=== PATIENT | female | born 1980 | race Caucasian/White ===

== ENCOUNTER 2016-10-14 13:19 | Emergency (ER) | payer MEDICAID ==
[2016-10-14] MEDS ORDERED: diphenhydrAMINE 50 MG/ML SDV IM ONE (13:47)
[2016-10-14 14:39] VITALS: BP 111/65
--- NOTE | 2016-10-15 13:44 | ER ---
DATE SEEN: 10/14/2016 HISTORY OF PRESENT ILLNESS: This 36-year-old, 7, para 6-0-0-6, single mom comes in because she was driving and a bee came in through the window, struck her chest, and stung in her right chest. She has a past medical history of significant reaction to wasp sting and/or bee stings. At that time, she lost consciousness and awoke with oxygen on her face. She did not have anaphylaxis. She did not have closing of her throat and she did not have problems with being intubated. She has had a history of chronic low blood pressures during this . She has had pressure in the 80s. She smokes quarter to half a pack cigarettes per day. ALLERGIES: Bee pollen, Depo-Provera, she has significant anaphylactic reaction to this. Nitrofurantoin and NuvaRing. CURRENT MEDICATIONS: 1. Iron. 2. Reglan. PAST MEDICAL HISTORY: Significant for scoliosis. REVIEW OF SYSTEMS: Otherwise is negative. PHYSICAL EXAMINATION: VITAL SIGNS: Blood pressure 111/65, heart rate 96, respirations 18, oxygen saturation 100%. GENERAL: The patient is anxious. She is gravid with increased abdominal girth. She has moderate poor dentition. HEENT: Otherwise negative. Mouth moist mucosa. PERRLA intact. NECK: No cervical adenopathy. No accessary muscle respirations. LUNGS: Clear to auscultation without rales, rhonchi, or wheezes. HEART: S1, S2. No murmur. No irregular rate or rhythm. ABDOMEN: Soft. No abdominal discomfort. Bowel sounds present. Increased abdominal girth, approximately 30 cm symphysis to fundus. heart tones 120 on the basis of quick look ultrasound. Baby is breech. EXTREMITIES: Without abnormality. No pedal edema. DERMIS: There is area of insect bite in the anterior right upper chest, which is slightly erythematous. No hives. Has macular erythema with a central insect bite. ASSESSMENT: 1. Insect bite. 2. Past medical history of significant blood pressure drop with wasp and/or bee bite mostly it was considered as bee-hymenoptera. 3. No evidence for anaphylaxis or blood pressure drop or allergic reaction presently. She is having appropriate histamine mast cell release with an insect bite. 4. The patient is stable. 5. The patient is 29.5 weeks with good heart rate 120 to 126. On quick look ultrasound, placenta is normal. 6. Poor dentition. PLAN: The patient dismissed. She was given Tagamet 1 dose orally, but the hospital does not have Tagamet, so Benadryl given orally 50 mg. The patient's status is stable. Oropharynx shows no evidence of edema, no evidence for uvula swelling, no evidence for dysphonia. Initially when she came in, there was mild low-pitched dysphonia in the Emergency Department that has resolved. The lungs have been clear. No evidence for wheezing or compromised respiratory status throughout the entire exam. She discussed having nausea, and nausea has relented. No evidence for hypotension. She has a past medical history of significant low blood pressures in 80s, and she notes 80s to 90s during is not unusual for her. The patient currently stable and dismissed to follow up with doctor in one week. /[id number] MADELINE/GRANT
== END 2016-10-14 14:55 | disposition home or self-care (01) ==
LOC: FB.ED 13:19
DX: O9A.213 Injury, poisoning and certain other consequences of external causes complicating pregnancy, third trimester (principal); T63.441A Toxic effect of venom of bees, accidental (unintentional), initial encounter; Z3A.29 29 weeks gestation of pregnancy
CPT/HCPCS: 96372; 99282; J1200